=== PATIENT | female | born 1965 | race Caucasian/White ===

== ENCOUNTER 2019-06-18 00:41 | Emergency (ER) | payer OTHER ==
--- NOTE | 2019-06-18 00:42 | NUR ---
[facility] ambulatory incustody for medical clearance and blood alcohol.Placed in ER [address] chair w/ [facility] officer.
--- NOTE | 2019-06-18 00:45 | NUR ---
Pt refused to be seen by ER Physician and to be triage.
--- NOTE | 2019-06-18 01:58 | NUR ---
Pt refuse to give consent for blood alcohol.Written search warrant obtained from [address] [facility]( [facility]) for blood alcohol, name and verified by CARMEN Watson. Disinfected patient's skin with that did not contain alcohol or other volatile organic compound. Collected the blood from the subject named by venipuncture, in the presence of Officer ACRMEN Watson badge # [id number]. Used a sterile, dry hypodermic needle and dry vacuum blood collection. Two dry vacuum blood collection was supplied by the officer named above. Withdrew a specimen of blood from left AC of the subject named above. Inverted both blood tube several times to ensure that the preservative and anticoagulant were thoroughly mixed in the blood specimen. I initialed both blood tube label for identification. The labeled blood tubes was handed directly to the Officer named above. The blood tubes stopper remained in place while I had possession of the blood tubes. The Officer placed tubes into envelope and sealed it in my presence. Envelope initialed by myself and Officer named above. Patient tolerated well, bandage applied, and bleeding controlled.
--- NOTE | 2019-06-18 02:15 | NUR ---
Pt left the ER ambulatory incustody w/ steady gait accompanied by [facility] officer Walter.
== END 2019-06-18 02:15 ==
LOC: SED 00:41
DX: Z02.83 Encounter for blood-alcohol and blood-drug test (principal)